=== PATIENT | female | born 1965 | race Caucasian/White ===

== ENCOUNTER 2018-11-21 14:06 | Emergency (ER) | payer SELFPAY, MEDICAID | END 2018-11-21 16:13 | disposition left against medical advice (07) | LOC: E/R 16:13 | DX: Z53.21 Procedure and treatment not carried out due to patient leaving prior to being seen by health care provider (principal) ==

== ENCOUNTER 2018-11-23 20:16 | Emergency (ER) | payer SELFPAY, MEDICAID | END 2018-11-24 01:44 | disposition home or self-care (01) | LOC: FTE 20:16 | DX: R21 Rash and other nonspecific skin eruption (principal); J45.909 Unspecified asthma, uncomplicated | CPT/HCPCS: 99282 ==